=== PATIENT | male | born 1955 | race Caucasian/White ===

== ENCOUNTER 2023-01-29 23:21 | Emergency (ER) | payer MEDICARE, BC, SELFPAY ==
[2023-01-29 23:24] VITALS: BP 163/104; PULSE 74; RESP 16; TEMP 36.5; O2SAT 98
--- NOTE | 2023-01-30 00:13 | ED.GENADULT ---
HPI - General Adult General Chief complaint: Laceration/Wound Stated complaint: right arm lac Time Seen by Provider: 01/30/23 00:01 Source: patient Mode of arrival: ambulatory Limitations: no limitations History of Present Illness HPI narrative: 67-year-old male reports that he rolled over in bed, when doing so he caught his left pinky finger nail on his right forearm, causing a scratch. Reports that his tetanus shot is up-to-date. He had a few initial drops of blood which has ceased. No difficulty moving wrist, forearm or hand. No numbness or tingling. He is not anticoagulated. He denies any other injuries. He was concerned that this could need stitches. He denies other concerns today and has been feeling generally well. He reports benign past medical history, up-to-date vaccines. ROS is negative for other generalized, skin, musculoskeletal or neurological changes. Related Data Allergies Allergy/AdvReac Type Severity Reaction Status Date / Time No Known Drug Allergies Allergy Verified 01/29/23 23:26 Exam Const: Vital Signs, click to edit/add: Vital Signs - 24 hr 01/29/23 23:24 Temperature 97.7 F Pulse Rate [Left P ulse Oximeter] 74 Respiratory Rate 16 Blood Pressure [Ri ght Upper Arm] 163/104 H Pulse Oximetry 98 Oxygen Delivery Me thod Room Air Documenting provider has reviewed patient's vital signs: yes Common normals: no apparent distress and alert General appearance: cooperative HENMT: Common normals: normocephalic Head and scalp: normocephalic Eye: General eye: normal appearance of both eyes Neck & C-Spine: General: normal visual inspection Resp: Common normals: normal respiratory effort Effort & inspection: able to speak in complete sentences Extremity: Other: Normal strength, range of motion in elbow, wrist and hand of right side. Neuro: Sensorium/orientation: alert Motor exam: no movement abnormalities noted Psych: Attitude: engaged Insight: fair Judgement: fair Skin: Narrative: 6 cm diagonal very superficial lacerations to right forearm. It is not even continuous, but rather consistent with a skipping type motion. Most areas does not even fully break the dermis level only epidermis. There is certainly no signs of deeper involvement. It is completely hemostatic. Wound does not gape in any way. No signs of foreign body Course Course ED Course: superficial laceration, no closure needed. Counseled on care. Covered with antibiotic ointment into large Band-Aids. Given supplies to change again tomorrow. Alarm symptoms reviewed that would warrant ED presentation. He verbalizes understanding and agreement. Vital Signs Vital signs: Initial Vital Signs Temperature 97.7 F 01/29/23 23:24 Temperature Source Temporal Artery Scan 01/29/23 23:24 Pulse Rate 74 01/29/23 23:24 Pulse Rhythm Regular 01/29/23 23:24 Respiratory Rate 16 01/29/23 23:24 Blood Pressure 163/104 H 01/29/23 23:24 Blood Pressure Mean 123 H 01/29/23 23:24 Blood Pressure Position Sitting 01/29/23 23:24 Pulse Oximetry 98 01/29/23 23:24 Oxygen Delivery Method Room Air 01/29/23 23:24 Vital Signs Temperature 97.7 F 01/29/23 23:24 Pulse Rate 74 01/29/23 23:24 Respiratory Rate 16 01/29/23 23:24 Blood Pressure 163/104 H 01/29/23 23:24 Pulse Oximetry 98 01/29/23 23:24 Oxygen Delivery Method Room Air 01/29/23 23:24 Temperature 97.7 F 01/29/23 23:24 Pulse Rate 74 01/29/23 23:24 Respiratory Rate 16 01/29/23 23:24 Blood Pressure 163/104 H 01/29/23 23:24 Pulse Oximetry 98 01/29/23 23:24 Oxygen Delivery Method Room Air 01/29/23 23:24 Discharge Plan Discharge Clinical Impression: Laceration Patient Disposition: Home, Self-Care Condition: Stable Instructions: Laceration (DC) Additional Instructions: As we discussed, the cut is not very deep and should heal with no complication. We have applied antibiotic ointment and covered with Band-Aid. Try to leave this on for 24 hours. Tomorrow, gently wash with soap and tap water, cover in that antibiotic ointment again and replace Band-Aids. Beginning on Thursday, you may leave uncovered or cover with Band-Aid again if you prefer. This is highly unlikely to become infected. If you have clinical concerns, make a follow-up appointment for the clinic on Thursday. Activity Level: No Restrictions Discharge Diet: Regular Stand Alone Forms: [employer] Info Instructions
--- NOTE | 2023-01-30 00:16 | ED.NURSE ---
wound cleaned, bacitracin applied and wrapped with bandage.
== END 2023-01-30 00:34 | disposition home or self-care (01) ==
PROVIDERS: Emergency Provider Family Medicine
DX: S51.811A Laceration without foreign body of right forearm, initial encounter (principal); W26.9XXA Contact with unspecified sharp object(s), initial encounter
CPT/HCPCS: 99282

== ENCOUNTER 2024-07-12 08:01 | Emergency (ER) | payer MEDICARE, SELFPAY ==
--- OUTSIDE RECORDS SUMMARY | 2024-07-12 08:04 | XMS_ITS | Clinical Summary ---
Author Organization [facility] Address [address] [place] [id number] Care Team Providers Care Telegraph And Teletype Operator Name Role Phone Pcp, No Primary Care Provider Unavailabl e Allergies No known active allergies Medications ASPIRIN 81 MG CHEWABLE TAB chew 1 tablet (81 mg) by oral route once daily 0 0 02/03/2008 Active CLARITIN 10 MG TAB take 1 tablet (10 mg) by oral route once daily as needed 0 02/05/2009 Active Active Problems Problem Noted Date Diagnosed Date Plantar fasciitis 02/03/2008 Immunizations Immunization Administration Dates Next Due Tdap 03/14/2016 Social History Tobacco Use Types Packs/Day Years Used Date Smoking Tobacco: Never Tobacco Cessation:Counseling Given: Yes Alcohol Use Standard Drinks/Week Comments Yes 0 (1 standard drink = 0.6 oz pur e alcohol) occ Sex and Gender Information Value Date Recorded Sex Assigned at Not on file Legal Sex Male 5:27 AM AGRICULTURE ENGINEER Gender Identity Not on file Sexual Orientation Not on file Obstetrics History Last Filed Vital Signs Vital Sign Reading Time Taken Comments Blood Pressure 132/78 03/14/2016 9:24 AM AGRICULTURE ENGINEER man ual Pulse 81 03/14/2016 9:00 AM AGRICULTURE ENGINEER Temperature - - Respiratory Rate - - Oxygen Saturation 97% 03/14/2016 9:00 AM AGRICULTURE ENGINEER Inhaled Oxygen Concentration - - Weight 77.9 kg (171 lb 12.8 oz) 03/14/2016 9:00 AM AGRICULTURE ENGINEER Height 182.5 cm (5' 11.85) 03/14/2016 9:[address] Body Mass Index 23.4 03/14/2016 9:00 AM AGRICULTURE ENGINEER Plan of Treatment Health Maintenance Due Date Last Done Comments Depression screening for age 12+ 1967 Hepatitis C screening for age 18-79 1973 Colonoscopy through age 75 2000 Lipids for age 45-75 2000 Pneumococcal series for age 50+ (1 of 1 - PCV) 006 Zoster (shingles) series for age 50+ (1 of 2) 05/03/19 06 BMI (ht and wt on same day) for age 18+ 03/14/2017 1 05/15/2015 COVID-19 vaccine series ( - season) Influenza Vaccine (Season Ended) 2024 Tetanus booster 03/14/2026 03/14/2016 RSV vaccine for adults or pr egnancy (1 - 1-dose 75+ series) 2030 Tdap Completed 03/14/2016 Insurance [facility] Care Teams Telegraph And Teletype Operator Relationship Specialty Start Date End Date Pcp, No . PCP - General 04/05/24
[2024-07-12 08:05] VITALS: BP 160/90; PULSE 76; RESP 18; TEMP 36.6; O2SAT 97; BMI 23.7
--- NOTE | 2024-07-12 08:33 | ED_ITS ---
HPI - Wound/Laceration General Date Seen: 07/12/24 Chief Complaint: Laceration/Wound Stated Complaint: right index finger cut Time Seen by Provider: 07/12/24 08:04 Source: patient Mode of arrival: ambulatory Limitations: no limitations History of Present Illness HPI narrative: Patient is a 69-year-old male presenting to emergency department for laceration to his right index finger. Last tetanus shot was in 2016. Yesterday around 15:00 he jammed his right index finger in a drawer. He put a Band-Aid on it and seemed to would stop bleeding eventually but today he took off the bandage and noticed it continues to bleed. No other injuries noted. States pain is minimal. No other concerns noted. Related Data Home Medications ?Medication ?Instructions ?Recorded ?Confirmed aspirin 81 mg chewable tablet 81 mg PO DAILY 07/12/24 07/12/24 (Aspirin Childrens) loratadine-pseudoephedrine ER 10 1 tab PO DAILY 07/12/24 07/12/24 mg-240 mg tablet,extended [id number] (AllerClear D-24hr) Allergies Allergy/AdvReac Type Severity Reaction Status Date / Time shell fish Allergy Severe Anaphylaxis Uncoded 07/12/24 08:13 dust mites Allergy Mild congestion Uncoded 07/12/24 08:13 Review of Systems Narrative: Pertinent systems reviewed and were negative unless stated in HPI PFSH PFSH Social History Non-prescribed substance use: denies use Exam Narrative: Exam Narrative: Const: Well-nourished, Well-developed, in mild distress Eyes: PERRL, no conjunctival injection, and symmetrical lids HENT: Atraumatic external nose and ears. Moist mucous membranes. MSK:Extremities w/o deformity, Normal Active ROM Skin: Warm, Dry. 7 mm x 4 mm flap of skin and connected at base to the dorsal aspect of the finger over the PIP. Neuro: Normal Muscle tone, No focal neurological deficits. Psych: Awake, Alert, & Oriented x3. Appropriate mood and affect. Const: Vital Signs, click to edit/add: Vital Signs - 24 hr 07/12/24 08:05 Temperature 97.9 F Pulse Rate [Pulse Oximeter] 76 Respiratory Rate 18 Blood Pressure [Le ft Upper Arm] 160/90 H Pulse Oximetry 97 Oxygen Delivery Me thod Room Air Course Vital Signs Vital signs: Initial Vital Signs Temperature 97.9 F 07/12/24 08:05 Temperature Source Temporal Artery Scan 07/12/24 08:05 Pulse Rate 76 07/12/24 08:05 Respiratory Rate 18 07/12/24 08:05 Blood Pressure 160/90 H 07/12/24 08:05 Blood Pressure Mean 113 H 07/12/24 08:05 Blood Pressure Position Sitting 07/12/24 08:05 Pulse Oximetry 97 07/12/24 08:05 Oxygen Delivery Method Room Air 07/12/24 08:05 Vital Signs Temperature 97.9 F 07/12/24 08:05 Pulse Rate 76 07/12/24 08:05 Respiratory Rate 18 07/12/24 08:05 Blood Pressure 160/90 H 07/12/24 08:05 Pulse Oximetry 97 07/12/24 08:05 Oxygen Delivery Method Room Air 07/12/24 08:05 Temperature 97.9 F 07/12/24 08:05 Pulse Rate 76 07/12/24 08:05 Respiratory Rate 18 07/12/24 08:05 Blood Pressure 160/90 H 07/12/24 08:05 Pulse Oximetry 97 07/12/24 08:05 Oxygen Delivery Method Room Air 07/12/24 08:05 MDM - Wound/Laceration MDM Narrative Medical decision making narrative: Patient presents to the emergency department for laceration that is over 12 hours old. Current recommendations are to not suture lacerations that old if they are anywhere about the face and scalp. I was able to place the skin flap back in place and I did use a small amount of Dermabond attack it to this can so that hopefully it will heal. The area was thoroughly cleaned out prior to this. A dressing was then placed and he was discharged. He was agreeable to this Discharge Plan Discharge Clinical Impression: Laceration Patient Disposition: Home, Self-Care Condition: Stable Instructions: Finger Laceration (ED) Additional Instructions: Try to keep the area covered for the next few days at least. Do not scrub the area as she may accidentally ripped off the glue and skin flap and cause bleeding to restart. You can wash the area but do so gently. Return to emergency department for new or worsening symptoms. Topical antibiotics are not necessary at this time Prescriptions: No Action aspirin [Aspirin Childrens] 81 mg tablet,chewable 81 mg PO DAILY AllerClear D-24hr 10-240 mg tablet extended release 24 hr 1 tab PO DAILY Follow Up/Referrals: Provider,Not a Local [Primary Care Provider] - Stand Alone Forms: People [employer] Info Instructions
--- OUTSIDE RECORDS SUMMARY | 2024-07-12 09:06 | XMS_ITS | Clinical Summary ---
Author Organization [facility] Address [address] [place] [id number] Care Team Providers Care Cadworx Piping Designer Name Role Phone Pcp, No Primary Care [...] on file Legal Sex Male 5:27 AM GOVERNMENT AFFAIRS SPECIALIST Gender Identity Not on file Sexual Orientation Not on file Obstetrics History Last Filed Vital Signs Vital Sign Reading Time Taken Comments Blood Pressure 132/78 03/14/2016 9:24 AM GOVERNMENT AFFAIRS SPECIALIST man ual Pulse 81 03/14/2016 9:00 AM GOVERNMENT AFFAIRS SPECIALIST Temperature - - Respiratory Rate - - Oxygen Saturation 97% 03/14/2016 9:00 AM GOVERNMENT AFFAIRS SPECIALIST Inhaled Oxygen Concentration - - Weight 77.9 kg (171 lb 12.8 oz) 03/14/2016 9:00 AM GOVERNMENT AFFAIRS SPECIALIST Height 182.5 cm (5' 11.85) 03/14/2016 9:[address] Body Mass Index 23.4 03/14/2016 9:00 AM GOVERNMENT AFFAIRS SPECIALIST Plan of Treatment Health Maintenance Due Date [...] 75+ series) 2030 Tdap Completed 03/14/2016 Insurance [facility] Care Teams Cadworx Piping Designer Relationship Specialty Start Date End Date Pcp, No . PCP - General 04/05/24
== END 2024-07-12 09:08 | disposition home or self-care (01) ==
LOC: ED 09:04
PROVIDERS: Emergency Provider Student in an Organized Health Care Education/Training Program
DX: S61.210A Laceration without foreign body of right index finger without damage to nail, initial encounter (principal); W23.0XXA Caught, crushed, jammed, or pinched between moving objects, initial encounter
CPT/HCPCS: 12001; 99282

== ENCOUNTER 2024-07-15 11:38 | Emergency (ER) | payer MEDICARE, BC, SELFPAY ==
--- OUTSIDE RECORDS SUMMARY | 2024-07-15 11:40 | XMS_ITS | Clinical Summary ---
Author Organization [facility] Address [address] [place] [id number] Care Team Providers Care Student Life Advisor Name Role Phone Pcp, No Primary Care [...] on file Legal Sex Male 5:27 AM HISTORIAN DRAMATIC ARTS Gender Identity Not on file Sexual Orientation Not on file Obstetrics History Last Filed Vital Signs Vital Sign Reading Time Taken Comments Blood Pressure 132/78 03/14/2016 9:24 AM HISTORIAN DRAMATIC ARTS man ual Pulse 81 03/14/2016 9:00 AM HISTORIAN DRAMATIC ARTS Temperature - - Respiratory Rate - - Oxygen Saturation 97% 03/14/2016 9:00 AM HISTORIAN DRAMATIC ARTS Inhaled Oxygen Concentration - - Weight 77.9 kg (171 lb 12.8 oz) 03/14/2016 9:00 AM HISTORIAN DRAMATIC ARTS Height 182.5 cm (5' 11.85) 03/14/2016 9:[address] Body Mass Index 23.4 03/14/2016 9:00 AM HISTORIAN DRAMATIC ARTS Plan of Treatment Health Maintenance Due Date [...] 75+ series) 2030 Tdap Completed 03/14/2016 Insurance [facility] Care Teams Student Life Advisor Relationship Specialty Start Date End Date Pcp, No . PCP - General 04/05/24
[2024-07-15 11:47] VITALS: BP 166/85; PULSE 86; RESP 16; TEMP 36.3; O2SAT 98; BMI 22.8
--- NOTE | 2024-07-15 11:58 | ED_ITS ---
HPI - General Adult General Chief complaint: Laceration/Wound Stated complaint: recheck finger cut-seen in ED 07/12 Time Seen by Provider: 07/15/24 11:41 Source: patient Mode of arrival: ambulatory Limitations: no limitations History of Present Illness HPI narrative: 69-year-old male presenting today for recheck of his laceration. Patient was seen 3 days ago for suffered a laceration to the next finger of the right hand. Today when he was changing his dressing he noticed some blood on the dressing he is concerned that it might not be healing appropriately. Denies any redness or increased pain to the area. Related Data Home Medications ?Medication ?Instructions ?Recorded ?Confirmed aspirin 81 mg chewable tablet 81 mg PO DAILY 07/12/24 07/12/24 (Aspirin Childrens) loratadine-pseudoephedrine ER 10 1 tab PO DAILY 07/12/24 07/12/24 mg-240 mg tablet,extended [id number] (AllerClear D-24hr) Allergies Allergy/AdvReac Type Severity Reaction Status Date / Time shell fish Allergy Severe Anaphylaxis Uncoded 07/12/24 08:13 dust mites Allergy Mild congestion Uncoded 07/12/24 08:13 Review of Systems Status of ROS: Reports: 6 or more systems reviewed and unremarkable except as noted in History and below PFSH PFS Social History Smoking Status: Never smoker Do you use any of these nicotine containing products: None How often do you have a drink containing alcohol: 2-4 times a month AUDIT-C Alcohol total score: 2 Non-prescribed substance use: denies use Exam Narrative: Exam Narrative: Well-nourished well-developed patient in no acute distress. Alert and oriented. Answers questions appropriately. Mood and affect are appropriate. Thoughts are goal oriented and rational. No tangential or magical thinking noted. Patient speaks in full sentences without needing to catch His breath. patient does not appear ill or toxic. Extremities: Healing laceration of the index finger. Patient has a small area of dried old blood on the old dressing. This was removed, there is no active bleeding noted. No evidence of infection. Const: Vital Signs, click to edit/add: Vital Signs - 24 hr 07/15/24 11:47 Temperature 97.4 F L Pulse Rate [Pulse Oximeter] 86 Respiratory Rate 16 Blood Pressure [Ri ght Upper Arm] 166/85 H Pulse Oximetry 98 Oxygen Delivery Me thod Room Air Course Course ED Course: New dressing was placed. Vital Signs Vital signs: Initial Vital Signs Temperature 97.4 F L 07/15/24 11:47 Temperature Source Temporal Artery Scan 07/15/24 11:47 Pulse Rate 86 07/15/24 11:47 Respiratory Rate 16 07/15/24 11:47 Blood Pressure 166/85 H 07/15/24 11:47 Blood Pressure Mean 112 H 07/15/24 11:47 Blood Pressure Position Sitting 07/15/24 11:47 Pulse Oximetry 98 07/15/24 11:47 Oxygen Delivery Method Room Air 07/15/24 11:47 Vital Signs Temperature 97.4 F L 07/15/24 11:47 Pulse Rate 86 07/15/24 11:47 Respiratory Rate 16 07/15/24 11:47 Blood Pressure 166/85 H 07/15/24 11:47 Pulse Oximetry 98 07/15/24 11:47 Oxygen Delivery Method Room Air 07/15/24 11:47 Temperature 97.4 F L 07/15/24 11:47 Pulse Rate 86 07/15/24 11:47 Respiratory Rate 16 07/15/24 11:47 Blood Pressure 166/85 H 07/15/24 11:47 Pulse Oximetry 98 07/15/24 11:47 Oxygen Delivery Method Room Air 07/15/24 11:47 Medical Decision Making MDM Narrative Medical decision making narrative: [age] year old male with a laceration to his finger, healing appropriately. Patient reassured. Discharge Plan Discharge Clinical Impression: Laceration Patient Disposition: Home, Self-Care Condition: Stable Additional Instructions: continue with same wound care routine. Prescriptions: No Action aspirin [Aspirin Childrens] 81 mg tablet,chewable 81 mg PO DAILY AllerClear D-24hr 10-240 mg tablet extended release 24 hr 1 tab PO DAILY Follow Up/Referrals: Provider,Not a Local [Primary Care Provider] - Stand Alone Forms: [employer] Info Instructions
--- OUTSIDE RECORDS SUMMARY | 2024-07-15 12:12 | XMS_ITS | Clinical Summary ---
Author Organization [facility] Address [address] [place] [id number] Care Team Providers Care Dynamometer Repairer Name Role Phone Pcp, No Primary Care [...] on file Legal Sex Male 5:27 AM FIRE COORDINATOR Gender Identity Not on file Sexual Orientation Not on file Obstetrics History Last Filed Vital Signs Vital Sign Reading Time Taken Comments Blood Pressure 132/78 03/14/2016 9:24 AM FIRE COORDINATOR man ual Pulse 81 03/14/2016 9:00 AM FIRE COORDINATOR Temperature - - Respiratory Rate - - Oxygen Saturation 97% 03/14/2016 9:00 AM FIRE COORDINATOR Inhaled Oxygen Concentration - - Weight 77.9 kg (171 lb 12.8 oz) 03/14/2016 9:00 AM FIRE COORDINATOR Height 182.5 cm (5' 11.85) 03/14/2016 9:[address] Body Mass Index 23.4 03/14/2016 9:00 AM FIRE COORDINATOR Plan of Treatment Health Maintenance Due Date [...] 75+ series) 2030 Tdap Completed 03/14/2016 Insurance [facility] Care Teams Dynamometer Repairer Relationship Specialty Start Date End Date Pcp, No . PCP - General 04/05/24
== END 2024-07-15 12:16 | disposition home or self-care (01) ==
LOC: ED 12:10
PROVIDERS: Emergency Provider Family Medicine
DX: S61.210A Laceration without foreign body of right index finger without damage to nail, initial encounter (principal)
CPT/HCPCS: 99282; 99283